=== PATIENT | female | born 1965 | race Caucasian/White ===

== ENCOUNTER 2018-09-03 01:15 | Outpatient (CLI) | payer BC, SELFPAY ==
--- NOTE | 2018-09-03 08:00 | DI.MAMMO_ITS ---
SYMPTOM/DIAGNOSIS: SCREENING, Z12.31, HEALTH ZOO.OO BILATERAL SCREENING MAMMOGRAM: Mammograms were interpreted according to the usual protocol including computer analysis with CAD system, tomosynthesis and C view imaging. Comparison is made with exams from 2015 through 2018. The breasts are composed of heterogeneously dense fibroglandular tissue, breast density Category C. No suspicious masses or suspicious microcalcifications are seen. There has been no significant change. IMPRESSION: Category 1-C, negative mammogram. Yearly screening mammography is recommended. SA ASSESSMENT OF FINDINGS: Negative. Category 1. Patient will receive a letter notifying them of these results. Bi-RADS category C. The breasts are heterogeneously dense, which may obscure small masses.
== END 2018-09-03 01:35 ==
PROVIDERS: PCP Internal Medicine; Visit Provider Nurse Practitioner Family
DX: Z00.00 Encounter for general adult medical examination without abnormal findings (principal); Z12.31 Encounter for screening mammogram for malignant neoplasm of breast
CPT/HCPCS: 77063; 77067

== ENCOUNTER 2018-09-10 14:11 | Outpatient (REF) | payer BC, SELFPAY ==
--- NOTE | 2018-09-10 13:50 | PAPFT_PTH ---
PATIENT: Chayito Hurst LOC: [facility] U#:[id number] AGE/SX: 52/F ROOM: RE09/10/[address]: SURYA Rodriguez : 1965 BED: DIS: 09/10/2018 SPEC #: [id number] RECD: 09/10/18 18:03 STATUS: SULEMAN REDoroteo #: [id number] MIAN: 09/10/18 13:[address]: Melanie Bowman DEPT: [facility] Cytology RECD BY: Cintia Field ENTERED: 09/10/18 18:03 SP TYPE: PAPFT OTHR DR: Melanie Crawley Tissues: 1 - CX/ENDOCX FOR PAP SMEARS Procedures: PAP THIN PREP/UVM Screening Comments: [id number]
== END 2018-09-10 14:31 ==
LOC: LBN 14:11
PROVIDERS: PCP Internal Medicine; Visit Provider Nurse Practitioner Family
DX: Z12.4 Encounter for screening for malignant neoplasm of cervix (principal)
CPT/HCPCS: 88142

== ENCOUNTER 2019-04-13 11:00 | Outpatient (CLI) | payer BC, SELFPAY ==
[2019-04-13 12:44] LABS: TSH (W/Ref FT4) 1.65 uIU/mL (0.36-3.74)
== END 2019-04-13 11:20 ==
PROVIDERS: PCP Internal Medicine; Visit Provider Nurse Practitioner Family
DX: N93.9 Abnormal uterine and vaginal bleeding, unspecified (principal)
CPT/HCPCS: 36415; 84443

== ENCOUNTER 2019-04-14 01:12 | Outpatient (CLI) | payer BC, SELFPAY ==
--- NOTE | 2019-04-14 09:34 | DI.US_ITS ---
SYMPTOMS/DIAGNOSIS: ABNORMAL UTERINE AND VAGINAL BLEEDING, N93.9 PELVIC ULTRASOUND: A transabdominal and transvaginal examination was carried out. The uterus measures 9.2 cm in length, 5.4 cm in height and 6.0 cm in width with an endometrial stripe thickness of 6.1 mm. There are two small fundal fibroids, one measuring 1 x 0.5 x 1 cm, the second one 1.3 x 0.9 x 1.2 cm. Multiple nabothian cysts are demonstrated. The right ovary is prominent and is acoustically heterogeneous, measuring 3.6 x 2.5 x 3.5 cm. There is a 1.5 x 1.3 x 1.3 cm simple cyst. The left ovary measures 2.4 x 1.8 x 2.1 cm and appears acoustically heterogeneous. SUMMARY: Small uterine fibroids. The ovaries are acoustically heterogeneous and a simple cyst involving the right ovary is seen. Evaluation of the kidneys reveals no evidence of hydronephrosis. There is no evidence of free pelvic fluid.
== END 2019-04-14 01:32 ==
PROVIDERS: PCP Internal Medicine; Visit Provider Nurse Practitioner Family
DX: N93.9 Abnormal uterine and vaginal bleeding, unspecified (principal); D25.9 Leiomyoma of uterus, unspecified; N83.291 Other ovarian cyst, right side; N88.8 Other specified noninflammatory disorders of cervix uteri
CPT/HCPCS: 76830; 76856

== ENCOUNTER 2019-11-03 02:28 | Outpatient (CLI) | payer BC, SELFPAY ==
--- NOTE | 2019-11-03 11:45 | DI.MAMMO_ITS ---
EXAM: MAMMO SCREENING CLINICAL HISTORY: screening Z12.39 TECHNIQUE: Mammograms were interpreted according to the usual protocol including computer analysis w [employer] CAD system, tomosynthesis and C-view imaging. COMPARISON: 2009 to 2017 FINDINGS: The breasts are composed of heterogeneously dense fibroglandular densities, Breast Density category C . No suspicious masses or suspicious microcalcifications are seen. No skin thickening or abnormal axillary lymph nodes are seen. There has been no significant change from prior exams. IMPRESSION: BIRADS Category 1, negative mammogram. Yearly screening mammography is recommended. BREAST DENSITY: The mammogram demonstrates the patient's breast tissue is dense. Dense breast tissue is very common and is not abnormal but dense breast tissue can make it harder to find cancer on a ma mmogram. Also, dense breast tissue may increase breast cancer risk. This information about the result of the mammogram report was provided to the patient to raise their awareness. Use this report when y ou speak with the patient about their risks for breast cancer, which includes their family history. A t that time, you may recommend additional screening tests (Ultrasound or MRI) as they might be useful based on their risk. A negative radiographic report should not delay biopsy if a dominant or clinically suspicious mass is present. Up to ten percent of cancers are not identified on mammography. A negative report may reinforce clinical impression. Adenosis and dense breasts may obscure an underlying neoplasm. False positive reports average 6 to 10%.
== END 2019-11-03 02:48 ==
PROVIDERS: PCP Internal Medicine; Visit Provider Nurse Practitioner Family
DX: Z12.31 Encounter for screening mammogram for malignant neoplasm of breast (principal)
CPT/HCPCS: 77063; 77067

== ENCOUNTER 2019-11-03 09:55 | Outpatient (REF) | payer BC, SELFPAY ==
--- NOTE | 2019-11-03 09:40 | PAPFT_PTH ---
PATIENT: Chayito Hurst LOC: [facility] U#:[id number] AGE/SX: 53/F ROOM: RE11/03/[address]: Mildred Sheets NP : 1965 BED: DIS: 11/03/2019 SPEC #: [id number] RECD: 11/03/19 13:00 STATUS: SULEMAN ARLENE #: [id number] MIAN: 11/03/19 09:[address]: Mildred Sheets NP DEPT: [facility] Cytology RECD BY: Cintia Field ENTERED: 11/03/19 13:00 SP TYPE: PAPFT OTHR DR: Melanie Crawley Tissues: 1 - CX/ENDOCX FOR PAP SMEARS Procedures: PAP THIN PREP/UVM Screening HPV DNA PROBE Comments: [id number]
== END 2019-11-03 10:15 ==
LOC: LBN 09:55
PROVIDERS: PCP Internal Medicine; Visit Provider Nurse Practitioner Women's Health
DX: Z12.4 Encounter for screening for malignant neoplasm of cervix (principal); Z11.51 Encounter for screening for human papillomavirus (HPV)
CPT/HCPCS: 88142; 87624

== ENCOUNTER 2020-11-30 01:48 | Outpatient (CLI) | payer BC, SELFPAY ==
--- NOTE | 2020-11-30 06:45 | DI.MAMMO_ITS ---
EXAM: MAMMO SCREENING CLINICAL HISTORY: screening,Z12.39. TECHNIQUE: Bilateral full field digital CC and MLO mammographic images were obtained with 3D tomosyn thesis and utilizing computer aided detection (CAD). COMPARISON: Prior mammograms dating back to 2010, the most recent being October 2019. FINDINGS: The fibroglandular tissue is again noted be dense, this decreasing the sensitivity of the mammogram f or finding hidden underlying lesions. There are no CAD designations. There are no obvious spiculated masses nor malignant-appearing microcalcification groups. There is no significant architectural distortion nor skin thickening-retraction. IMPRESSION: Dense bilateral fibroglandular tissue. No obvious radiographic evidence of malignancy. BI-RADS Category 1 - Negative Breast Density - Category C - Heterogeneously dense Breast density Category C or D implies that the patient has dense breast tissue. Dense breast tissue can make it harder to find cancer on a mammogram. Dense breast tissue is also associated with an incr eased risk of breast cancer. This information about the result of the mammogram report was provided to the patient to raise their awareness. Use this report when you speak with the patient about their risks for breast cancer, which includes their family history. At that time, you may recommend additional screening tests (Ultrasoun d or MRI) as these tests may add significant information. A negative radiographic report should not delay biopsy if a dominant or clinically suspicious mass is present. Up to ten percent of cancers are not identified on mammography. A negative report may reinforce clinical impression. Adenosis and dense breasts may obscure an underlying neoplasm. False positive reports average 6 to 10%. Patient will receive a letter notifying them of these results.
== END 2020-11-30 02:08 ==
PROVIDERS: PCP Internal Medicine; Visit Provider Nurse Practitioner Family
DX: Z12.31 Encounter for screening mammogram for malignant neoplasm of breast (principal)
CPT/HCPCS: 77063; 77067

== ENCOUNTER 2021-12-17 02:11 | Outpatient (CLI) | payer BC, SELFPAY ==
--- NOTE | 2021-12-17 06:45 | DI.MAMMO_ITS ---
Exam(s) MAMMO SCREENING EXAM: MAMMO SCREENING CLINICAL HISTORY: screening.z12.39. TECHNIQUE: Bilateral full field digital CC and MLO mammographic images were obtained with 3D tomosyn thesis and utilizing computer aided detection (CAD). COMPARISON: Prior mammograms were reviewed, the most recent being November 2020. FINDINGS: The fibroglandular tissue pattern is again noted be moderately dense, this somewhat decreasing the se nsitivity of the mammogram for finding hidden underlying lesions There are no new spiculated masses nor malignant appearing microcalcification groups. There is no significant architectural distortion nor skin thickening-retraction. IMPRESSION: No radiographic evidence of malignancy. BI-RADS Category 1 - Negative Breast Density - Category C - Heterogeneously dense Breast density Category C or D implies that the patient has dense breast tissue. Dense breast tissue can make it harder to find cancer on a mammogram. Dense breast tissue is also associated with an incr eased risk of breast cancer. This information about the result of the mammogram report was provided to the patient to raise their awareness. Use this report when you speak with the patient about their risks for breast cancer, which includes their family history. At that time, you may recommend additional screening tests (Ultrasoun d or MRI) as these tests may add significant information. A negative radiographic report should not delay biopsy if a dominant or clinically suspicious mass is present. Up to ten percent of cancers are not identified on mammography. A negative report may reinforce clinical impression. Adenosis and dense breasts may obscure an underlying neoplasm. False positive reports average 6 to 10%. Patient will receive a letter notifying them of these results.
== END 2021-12-17 02:31 ==
PROVIDERS: PCP Internal Medicine; Visit Provider Nurse Practitioner Women's Health
DX: Z12.31 Encounter for screening mammogram for malignant neoplasm of breast (principal); R92.8 Other abnormal and inconclusive findings on diagnostic imaging of breast
CPT/HCPCS: 77063; 77067

== ENCOUNTER 2023-01-01 01:41 | Outpatient (CLI) | payer BC, SELFPAY ==
--- NOTE | 2023-01-01 08:45 | DI.MAMMO_ITS ---
Exam(s) MAMMO SCREENING EXAM: MAMMO SCREENING CLINICAL HISTORY: screening TECHNIQUE: Bilateral full field digital CC and MLO mammographic images were obtained with 3D tomosyn thesis and utilizing computer aided detection (CAD). COMPARISON: Available for comparison. FINDINGS: Masses/Architectural Distortion: None seen. Microcalcifications: No suspicious pleomorphic-type are seen. Skin Thickening/Nipple Retraction: None. IMPRESSION: 1. No significant interval change with no specific features of malignancy noted. 2. Unless there is more urgent need, screening mammography is recommended, as per [employer] guidelines. BI-RADS Category 1 - Negative Breast Density - Category C - Heterogeneously dense Breast density category C or D implies that the patient has dense breast tissue. Dense breast tissue is very common and is not abnormal but dense breast tissue can make it harder to find cancer on a ma mmogram. Also, dense breast tissue may increase their breast cancer risk. This information about the result of the mammogram report was provided to the patient to raise their awareness. Use this report when you speak with the patient about their risks for breast cancer, which includes their family hist ory. At that time, you may recommend for more screening tests (Ultrasound or MRI) as they might be us eful based on their risk. A negative radiographic report should not delay biopsy if a dominant or clinically suspicious mass is present. Up to ten percent of cancers are not identified on mammography. A negative report may reinforce clinical impression. Adenosis and dense breasts may obscure an underlying neoplasm. False positive reports average 6 to 10%. Patient will receive a letter notifying them of these results.
== END 2023-01-01 02:01 ==
PROVIDERS: PCP Internal Medicine; Visit Provider Nurse Practitioner Women's Health
DX: Z12.31 Encounter for screening mammogram for malignant neoplasm of breast (principal)
CPT/HCPCS: 77063; 77067

== ENCOUNTER → 2024-01-07 03:46 | Outpatient (CLI) | payer BC, SELFPAY ==
--- NOTE | 2024-01-07 08:45 | DI.MAMMO_ITS ---
Exam(s) MAMMO SCREENING EXAM: MAMMO SCREENING CLINICAL HISTORY: screening TECHNIQUE: Bilateral full field digital CC and MLO mammographic images were obtained with 3D tomosyn thesis and utilizing computer aided detection (CAD). COMPARISON: Available for comparison. FINDINGS: Masses/Architectural Distortion: None seen. Microcalcifications: No suspicious pleomorphic-type are seen. Skin Thickening/Nipple Retraction: None. IMPRESSION: 1. No significant interval change with no specific features of malignancy noted. 2. Unless there is more urgent need, screening mammography is recommended, as per [employer] guidelines. BI-RADS Category 1 - Negative Breast Density - Category C - Heterogeneously dense Breast density category C or D implies that the patient has dense breast tissue. Dense breast tissue is very common and is not abnormal but dense breast tissue can make it harder to find cancer on a ma mmogram. Also, dense breast tissue may increase their breast cancer risk. This information about the result of the mammogram report was provided to the patient to raise their awareness. Use this report when you speak with the patient about their risks for breast cancer, which includes their family hist ory. At that time, you may recommend for more screening tests (Ultrasound or MRI) as they might be us eful based on their risk. A negative radiographic report should not delay biopsy if a dominant or clinically suspicious mass is present. Up to ten percent of cancers are not identified on mammography. A negative report may reinforce clinical impression. Adenosis and dense breasts may obscure an underlying neoplasm. False positive reports average 6 to 10%. Patient will receive a letter notifying them of these results.
== END ==
PROVIDERS: PCP Internal Medicine; Visit Provider Nurse Practitioner Women's Health
DX: Z12.31 Encounter for screening mammogram for malignant neoplasm of breast (principal)
CPT/HCPCS: 77063; 77067

== ENCOUNTER 2024-01-07 11:41 | Outpatient (REF) | payer BC, SELFPAY ==
--- NOTE | 2024-01-07 11:00 | PAPFT_PTH ---
PATIENT: Chayito Hurst LOC: [facility] U#:[id number] AGE/SX: 58/F ROOM: RE01/07/[address]: Mildred Sheets NP : 1965 BED: DIS: 01/07/2024 SPEC #: [id number] RECD: 01/07/24 12:47 STATUS: SULEMAN REDoroteo #: [id number] MIAN: 01/07/24 11:[address]: Mildred Sheets NP DEPT: [facility] Cytology RECD BY: Cintia Field ENTERED: 01/07/24 12:47 SP TYPE: PAPFT OTHR DR: Melanie Crawley Tissues: 1 - CX/ENDOCX FOR PAP SMEARS Procedures: PAP THIN PREP/UVM Screening HPV DNA PROBE Comments: [id number] (CHLAMYDIA/GC)
[2024-01-08 14:48] LABS: Chlamydia Result Negative (Negative); GC Result Negative (Negative)
== END 2024-01-07 11:42 | disposition home or self-care (01) ==
LOC: LBN 11:41
PROVIDERS: PCP Internal Medicine; Visit Provider Nurse Practitioner Women's Health
DX: Z12.4 Encounter for screening for malignant neoplasm of cervix (principal); D26.0 Other benign neoplasm of cervix uteri
CPT/HCPCS: 87491; 87591; 88142; 87624

== ENCOUNTER 2024-01-07 11:47 | Outpatient (CLI) | payer BC, SELFPAY ==
[2024-01-08 09:14] LABS: Hepatitis C Ab w Rflx HCV PCR Negative (Negative)
[2024-01-08 09:29] LABS: HIV-1/2 Ag & Ab Screen Negative (Negative)
[2024-01-09 19:44] LABS: Syphilis IgG w/Reflex Nonreactive (Nonreactive)
== END 2024-01-07 11:48 | disposition home or self-care (01) ==
LOC: LBO 11:48
PROVIDERS: PCP Internal Medicine; Visit Provider Nurse Practitioner Women's Health
DX: Z11.3 Encounter for screening for infections with a predominantly sexual mode of transmission (principal)
CPT/HCPCS: 36415; 86803; 87389; 86780

== ENCOUNTER 2025-01-27 01:13 | Outpatient (CLI) | payer BC, SELFPAY ==
--- NOTE | 2025-01-27 06:45 | DI.MAMMO_ITS ---
Exam(s) MAMMO SCREENING EXAM: MAMMO SCREENING CLINICAL HISTORY: screening,z12.39 TECHNIQUE: Bilateral full field digital CC and MLO mammographic images were obtained with 3D tomosyn thesis and utilizing computer aided detection (CAD). COMPARISON: Available for comparison. FINDINGS: Masses/Architectural Distortion: No suspicious masses or areas of architectural distortion are presen t. Microcalcifications: No suspicious pleomorphic-type are seen. Skin Thickening/Nipple Retraction: None. IMPRESSION: 1. No significant interval change with no specific features of malignancy noted. 2. Unless there is more urgent need, screening mammography is recommended, as per [employer] guidelines. BI-RADS Category 1 - Negative Breast Density - Category C - The breast are heterogeneously dense, which may obscure small masses. Breast density Category C or D implies that the patient has dense breast tissue. Dense breast tissue can make it harder to find cancer on a mammogram. Dense breast tissue is also associated with an incr eased risk of breast cancer. This information about the result of the mammogram report was provided to the patient to raise their awareness. Use this report when you speak with the patient about their risks for breast cancer, which includes their family history. At that time, you may recommend additional screening tests (Ultrasoun d or MRI) as these tests may add significant information. A negative radiographic report should not delay biopsy if a dominant or clinically suspicious mass is present. Up to ten percent of cancers are not identified on mammography. A negative report may reinforce clinical impression. Adenosis and dense breasts may obscure an underlying neoplasm. False positive reports average 6 to 10%. Patient will receive a letter notifying them of these results.
[2025-01-28 11:12] LABS: Chlamydia Result Negative (Negative); GC Result Negative (Negative)
== END 2025-01-27 01:33 ==
LOC: DI 01:13
PROVIDERS: Nurse Practitioner Women's Health; PCP Internal Medicine; Visit Provider Obstetrics & Gynecology
DX: Z12.31 Encounter for screening mammogram for malignant neoplasm of breast (principal); Z11.3 Encounter for screening for infections with a predominantly sexual mode of transmission
CPT/HCPCS: 77063; 77067; 87491; 87591